=== PATIENT | male | born 1990 | race Caucasian/White ===

== ENCOUNTER 2021-02-24 17:02 | Emergency (ER) | payer MEDICAID ==
[~2021-02-24] VITALS: Ht 185.4 cm; Wt 77.3 kg
[2021-02-24 17:05] VITALS: BP 138/99
--- NOTE | 2021-02-24 17:16 | NUR ---
PT AMBULATORY TO ROOM, CHANGED INTO GOWN. SITTING WITH GIRL FRIEND. PT STATES OVER THE LAST COUPLE WEEKS DEPRESSION & ANXIETY HAVE WORSENED. HERE FOR MENTAL HEALTH EXAM. DENIES SI/HI AT THIS TIME. ALSO C/O N/V/DEVRIES
--- NOTE | 2021-02-24 17:42 | NUR ---
[facility] given discharge instructions and they have confirmed that they understand the instructions. Patient ambulatory with steady gait.
== END 2021-02-24 17:44 | disposition home or self-care (01) ==
LOC: ED 17:38
DX: F33.9 Major depressive disorder, recurrent, unspecified (principal); F12.20 Cannabis dependence, uncomplicated; F15.20 Other stimulant dependence, uncomplicated; R51.9 Headache, unspecified; Z59.0 Homelessness
CPT/HCPCS: 99281; 99284